=== PATIENT | male | born 1955 | race Caucasian/White ===

== ENCOUNTER 2022-01-15 11:08 | Day surgery (SDC) | payer OTHER ==
[~2022-01-15] VITALS: Ht 182.9 cm; Wt 90.7 kg
[2022-01-15] MEDS ORDERED: MIDAZOLAM 2 MG/2 ML VIAL ONE (13:46)
[2022-01-15] MEDS ORDERED: fentaNYL citrate 0.05 MG/ML VIAL ONE (13:46)
[2022-01-15] MEDS ORDERED: LIDOCAINE 2% 100 MG/5 ML UJET TP ONE (13:47)
[2022-01-15] MEDS ORDERED: fentaNYL citrate 0.05 MG/ML VIAL IVP ONE (15:05)
[2022-01-15] MEDS ORDERED: LABETALOL 100 MG/20 ML VIAL IVP ONE (15:05)
== END 2022-01-15 15:00 | disposition home or self-care (01) ==
LOC: MDS 11:08 → MMU 11:40 → MDS 15:00
PROVIDERS: ATTEND Internal Medicine Gastroenterology
DX: Z12.11 Encounter for screening for malignant neoplasm of colon (principal); I10 Essential (primary) hypertension; E11.9 Type 2 diabetes mellitus without complications; M10.9 Gout, unspecified; Z80.0 Family history of malignant neoplasm of digestive organs; Z79.84 Long term (current) use of oral hypoglycemic drugs; Z79.899 Other long term (current) drug therapy; Z20.822 Contact with and (suspected) exposure to COVID-19
CPT/HCPCS: 45378; 87426; J3010; J2250